=== PATIENT | male | born 1980 | race Caucasian/White ===

== ENCOUNTER 2017-06-02 13:00 | Inpatient (IN) | payer OTHER ==
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
[2017-06-02] MEDS ORDERED: MENTHOL/PHENOL 1 EACH UD MM PRN (19:03)
[2017-06-02] MEDS ORDERED: diazePAM 5 MG TABLET PO PRN (19:03)
[2017-06-02] MEDS ORDERED: MAGNESIUM HYDROX 2400MG/30ML ORAL SUSPENSION 30 ML CUP PO PRN (19:03)
[2017-06-02] MEDS ORDERED: LOPERAMIDE HCL 2 MG CAPSULE PO PRN (19:03)
[2017-06-02] MEDS ORDERED: NICOTINE POLACRILEX 2 MG GUM BC PRN (19:03)
[2017-06-02] MEDS ORDERED: MAG HYDROX/AL HYDROX/SIMETH 30 ML UNIT-DOSE CUP PO PRN (19:03)
[2017-06-02] MEDS ORDERED: P-EPHED 60MG/TRIPROLIDI 2.5MG TABLET PO PRN (19:03)
[2017-06-02] MEDS ORDERED: guaiFENesin/D-METHORPHAN HB 10 ML UNIT-DOSE CUPS PO PRN (19:03)
[2017-06-02] MEDS ORDERED: MAGNESIUM CITRATE 300 ML BOTTLE PO PRN (19:03)
[2017-06-02] MEDS ORDERED: diazePAM 5 MG TABLET PO ONE (19:03)
[2017-06-02] MEDS ORDERED: hydrOXYzine PAMOATE 50 MG CAPSULE (FP) PO PRN (19:03)
[2017-06-02 19:33] VITALS: BMI 23.7
[2017-06-02] MEDS: THIAMINE HCL 100 MG TABLET (FP) PO SCH (21:26)
[2017-06-02] MEDS: diazePAM 5 MG TABLET PO SCH (21:51)
[2017-06-02] MEDS: METHYL SALICYLATE/MENTHOL OINT 30 GM TUBE TP SCH (21:51)
[2017-06-02] MEDS: ACETAMINOPHEN 325 MG TABLET (FP) PO PRN (23:18)
[2017-06-02 23:28] LABS: URINE APPEARANCE CLOUDY; URINE BILIRUBIN NEGATIVE (NEGATIVE); URINE BLOOD NEGATIVE (NEGATIVE); URINE COLOR YELLOW; URINE GLUCOSE (UA) NEGATIVE (NEGATIVE); URINE KETONE NEGATIVE (NEGATIVE); URINE LEUK ESTERASE NEGATIVE (NEGATIVE); URINE NITRITE NEGATIVE (NEGATIVE); URINE PROTEIN NEGATIVE (NEGATIVE); URINE UROBILINOGEN NEGATIVE mg/dL (0.2-1.0)
[2017-06-03] MEDS: diazePAM 5 MG TABLET PO SCH ×3 (06:02→22:39)
[2017-06-03 10:02] LABS: HEMATOCRIT 39.9 % (35.4-49); HEMOGLOBIN 13.3 GM/dL (11.7-16.9); MCH 27.7 pg (25.7-33.7); MCHC 33.4 g/dl (32.0-35.9); MEAN CELL VOLUME 82.9 fl (80-96); MEAN PLT VOLUME 9.5 fl (7.5-11.1); PLATELET COUNT 285 K/MM3 (134-434); RBC 4.81 M/mm3 (4.00-5.60); RDW 15.4 % (11.9-15.9)
[2017-06-03 10:12] LABS: CHLORIDE 107 mmol/L (98-107); POTASSIUM 4.2 mmol/L (3.5-5.1); SODIUM 142 mmol/L (136-145)
[2017-06-03 10:25] LABS: ALBUMIN 3.6 g/dl (3.4-5.0); ALK PHOS 83 U/L (45-117); ANION GAP 8 (8-16); BILIRUBIN,TOTAL 0.3 mg/dL (0.2-1.0); BLOOD UREA NITROGEN 10 mg/dL (7-18); CALCIUM 8.5 mg/dL (8.5-10.1); CO2 27 mmol/L (21-32); GLUCOSE,RANDOM 87 mg/dL (74-106); SGOT/AST 8 U/L (15-37); SGPT/ALT 21 U/L (12-78); TOT PROT 7.1 g/dl (6.4-8.2)
[2017-06-03] MEDS: RANITIDINE HCL 150 MG TABLET (FP) PO SCH (10:32)
[2017-06-03] MEDS: NICOTINE 21 MG/24 HOURS TOPICAL PATCH TD SCH (10:32)
[2017-06-03] MEDS: METHYL SALICYLATE/MENTHOL OINT 30 GM TUBE TP SCH ×2 (10:32→22:40)
[2017-06-03] MEDS: PRENATAL VITAMINS W/ FOLIC ACID TABLET (FP) PO SCH (10:32)
[2017-06-03] MEDS ORDERED: diphenhydrAMINE HCL 25 MG CAPSULE (FP) PO PRN (11:11)
--- NOTE | 2017-06-03 12:24 | EKG ---
Test Reason : Blood Pressure : / mmHG Vent. Rate : 064 BPM Atrial Rate : 072 BPM P-R Int : 000 ms QRS Dur : 086 ms QT Int : 458 ms P-R-T Axes : 074 076 070 degrees QTc Int : 472 ms NORMAL SINUS RHYTHM with INTERMITTENT ECTOPIC ATRIAL COMPLEXES OTHERWISE NORMAL ECG Confirmed by MD ETTA, AYO ([id number]) on 06/03/2017 12:24:18 PM Referred By: Confirmed By:AYO QUILES MD
--- NOTE | 2017-06-03 12:26 | EKG ---
Test Reason : Blood Pressure : / mmHG Vent. Rate : 097 BPM Atrial Rate : 097 BPM P-R Int : 214 ms QRS Dur : 084 ms QT Int : 354 ms P-R-T Axes : -70 071 044 degrees QTc Int : 449 ms UNUSUAL P AXIS, POSSIBLE ECTOPIC ATRIAL RHYTHM ABNORMAL ECG NO PREVIOUS ECGS AVAILABLE Confirmed by MD ETTA, AYO ([id number]) on 06/03/2017 12:26:15 PM Referred By: Confirmed By:AYO QUILES MD
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
[2017-06-03] MEDS: IBUPROFEN 400 MG TABLET (FP) PO PRN ×2 (14:21→22:40)
--- NOTE | 2017-06-03 15:04 | PN ---
[facility] CIWA - CIWA Score Nausea/Vomitin-No Nausea/No Vomiting Muscle Tremors: 3 Anxiety: 4-Mod. Anxious/Guarded Agitation: 3 Paroxysmal Sweats: 3 Orientation: 0-Oriented Tacttile Disturbances: 2-Mild Itch/Numbness/Burn Auditory Disturbances: 0-None Visual Disturbances: 3-Moderate Sensitivity Headache: 0-None Present CIWA-Ar Total Score: 18 S Progress Note (SOAP) Subjective: Interrupted Sleep, Tremors, Sweating, Body Aches, Fatigue. Objective: PT. A & O X 3, OBSERVED AMBULATING ON UNIT. NO ACUTE DISTRESS. 06/03/17 15:02 Vital Signs Temperature 97 F L 06/03/17 10:23 Pulse Rate 75 06/03/17 10:23 Respiratory Rate 18 06/03/17 10:23 Blood Pressure 125/80 06/03/17 10:23 O2 Sat by Pulse Oximetry (%) Laboratory Tests 06/02/17 06/03/17 06/03/17 23:13 06:06 06:06 WBC 8.0 RBC 4.81 Hgb 13.3 Hct 39.9 MCV 82.9 MCH 27.7 MCHC 33.4 RDW 15.4 Plt Count 285 MPV 9.5 Sodium 142 Potassium 4.2 Chloride 107 Carbon Dioxide 27 Anion Gap 8 BUN 10 Creatinine 1.0 Creat Clearance w eGFR > 60 Random Glucose 87 Calcium 8.5 Total Bilirubin 0.3 AST 8 L ALT 21 Alkaline Phosphatase 83 Total Protein 7.1 Albumin 3.6 Urine Color Yellow Urine Appearance Cloudy Urine pH 7.0 Ur Specific [place] 1.017 Urine Protein Negative Urine Glucose (UA) Negative Urine Ketones Negative Urine Blood Negative Urine Nitrite Negative Urine Bilirubin Negative Urine Urobilinogen Negative Ur Leukocyte Esterase Negative RPR Titer 06/03/17 06:06 WBC RBC Hgb Hct MCV MCH MCHC RDW Plt Count MPV Sodium Potassium Chloride Carbon Dioxide Anion Gap BUN Creatinine Creat Clearance w eGFR Random Glucose Calcium Total Bilirubin AST ALT Alkaline Phosphatase Total Protein Albumin Urine Color Urine Appearance Urine pH Ur Specific [place] Urine Protein Urine Glucose (UA) Urine Ketones Urine Blood Urine Nitrite Urine Bilirubin Urine Urobilinogen Ur Leukocyte Esterase RPR Titer Nonreactive LABS NOTED. RESULTS OF ADMISSION AND REPEAT ECG'S NOTED. PATIENT DENIES ANY HISTORY OF CARDIOVASCULAR DISEASE. PATIENT DENIES CHEST PAIN AND SOB. 06/03/17 15:02 Assessment: 06/03/17 15:02 WITHDRAWAL SYMPTOMS. Plan: CONTINUE DETOX. INCREASE DAILY PO FLUID INTAKE.
[2017-06-03] MEDS: THIAMINE HCL 100 MG TABLET (FP) PO SCH (22:39)
[2017-06-04] MEDS: RANITIDINE HCL 150 MG TABLET (FP) PO SCH (10:13)
[2017-06-04] MEDS: METHYL SALICYLATE/MENTHOL OINT 30 GM TUBE TP SCH ×2 (10:13→22:20)
[2017-06-04] MEDS: NICOTINE 21 MG/24 HOURS TOPICAL PATCH TD SCH (10:13)
[2017-06-04] MEDS: diazePAM 5 MG TABLET PO SCH ×2 (10:13→22:20)
[2017-06-04] MEDS: PRENATAL VITAMINS W/ FOLIC ACID TABLET (FP) PO SCH (10:13)
--- NOTE | 2017-06-04 15:08 | PN ---
S CIWA - CIWA Score Nausea/Vomitin-No Nausea/No Vomiting Muscle Tremors: 4-Moderate,w/Arms Extend Anxiety: 4-Mod. Anxious/Guarded Agitation: 4-Moderately Restless Paroxysmal Sweats: 4-Forehead w/Sweat Beads Orientation: 0-Oriented Tacttile Disturbances: 0-None Auditory Disturbances: 0-None Visual Disturbances: 0-None Headache: 0-None Present CIWA-Ar Total Score: 16 [facility] Progress Note (SOAP) Subjective: Sweating, tremor, interrupted sleep Objective: 06/04/17 15:06 Last Vital Signs Temp Pulse Resp BP Pulse Ox 98 F 113 H 20 133/79 06/04/17 14:32 06/04/17 14:32 06/04/17 14:32 06/04/17 14:32 Laboratory Tests 06/02/17 06/03/17 06/03/17 23:13 06:06 06:06 WBC 8.0 RBC 4.81 Hgb 13.3 Hct 39.9 MCV 82.9 MCH 27.7 MCHC 33.4 RDW 15.4 Plt Count 285 MPV 9.5 Sodium 142 Potassium 4.2 Chloride 107 Carbon Dioxide 27 Anion Gap 8 BUN 10 Creatinine 1.0 Creat Clearance w eGFR > 60 Random Glucose 87 Calcium 8.5 Total Bilirubin 0.3 AST 8 L ALT 21 Alkaline Phosphatase 83 Total Protein 7.1 Albumin 3.6 Urine Color Yellow Urine Appearance Cloudy Urine pH 7.0 Ur Specific [place] 1.017 Urine Protein Negative Urine Glucose (UA) Negative Urine Ketones Negative Urine Blood Negative Urine Nitrite Negative Urine Bilirubin Negative Urine Urobilinogen Negative Ur Leukocyte Esterase Negative RPR Titer 06/03/17 06:06 WBC RBC Hgb Hct MCV MCH MCHC RDW Plt Count MPV Sodium Potassium Chloride Carbon Dioxide Anion Gap BUN Creatinine Creat Clearance w eGFR Random Glucose Calcium Total Bilirubin AST ALT Alkaline Phosphatase Total Protein Albumin Urine Color Urine Appearance Urine pH Ur Specific [place] Urine Protein Urine Glucose (UA) Urine Ketones Urine Blood Urine Nitrite Urine Bilirubin Urine Urobilinogen Ur Leukocyte Esterase RPR Titer Nonreactive Labs noted Assessment: 06/04/17 15:07 Withdrawal symptoms Plan: Continue detox
[2017-06-04] MEDS: THIAMINE HCL 100 MG TABLET (FP) PO SCH (22:20)
[2017-06-04] MEDS: IBUPROFEN 400 MG TABLET (FP) PO PRN (22:21)
[2017-06-05] MEDS: METHYL SALICYLATE/MENTHOL OINT 30 GM TUBE TP SCH ×2 (10:17→22:01)
[2017-06-05] MEDS: PRENATAL VITAMINS W/ FOLIC ACID TABLET (FP) PO SCH (10:17)
[2017-06-05] MEDS: NICOTINE 21 MG/24 HOURS TOPICAL PATCH TD SCH (10:17)
[2017-06-05] MEDS: RANITIDINE HCL 150 MG TABLET (FP) PO SCH (10:17)
[2017-06-05] MEDS: diazePAM 5 MG TABLET PO SCH ×2 (10:17→22:01)
--- NOTE | 2017-06-05 12:23 | PN ---
[facility] Progress Note (SOAP) Subjective: Interrupted Sleep, Fatigue. Objective: PT. A & O X 3, OBSERVED AMBULATING ON UNIT WITH ASSISTANCE OF A WALKER. NO ACUTE DISTRESS. 06/05/17 12:21 Vital Signs Temperature 98.0 F 06/05/17 09:29 Pulse Rate 83 06/05/17 09:29 Respiratory Rate 18 06/05/17 09:29 Blood Pressure 129/77 06/05/17 09:29 O2 Sat by Pulse Oximetry (%) Laboratory Tests 06/02/17 06/03/17 06/03/17 23:13 06:06 06:06 WBC 8.0 RBC 4.81 Hgb 13.3 Hct 39.9 MCV 82.9 MCH 27.7 MCHC 33.4 RDW 15.4 Plt Count 285 MPV 9.5 Sodium 142 Potassium 4.2 Chloride 107 Carbon Dioxide 27 Anion Gap 8 BUN 10 Creatinine 1.0 Creat Clearance w eGFR > 60 Random Glucose 87 Calcium 8.5 Total Bilirubin 0.3 AST 8 L ALT 21 Alkaline Phosphatase 83 Total Protein 7.1 Albumin 3.6 Urine Color Yellow Urine Appearance Cloudy Urine pH 7.0 Ur Specific [place] 1.017 Urine Protein Negative Urine Glucose (UA) Negative Urine Ketones Negative Urine Blood Negative Urine Nitrite Negative Urine Bilirubin Negative Urine Urobilinogen Negative Ur Leukocyte Esterase Negative RPR Titer 06/03/17 06:06 WBC RBC Hgb Hct MCV MCH MCHC RDW Plt Count MPV Sodium Potassium Chloride Carbon Dioxide Anion Gap BUN Creatinine Creat Clearance w eGFR Random Glucose Calcium Total Bilirubin AST ALT Alkaline Phosphatase Total Protein Albumin Urine Color Urine Appearance Urine pH Ur Specific [place] Urine Protein Urine Glucose (UA) Urine Ketones Urine Blood Urine Nitrite Urine Bilirubin Urine Urobilinogen Ur Leukocyte Esterase RPR Titer Nonreactive LABS NOTED. Assessment: 06/05/17 12:22 WITHDRAWAL SYMPTOMS. Plan: CONTINUE DETOX. INCREASE DAILY PO FLUID INTAKE.
[2017-06-05] MEDS: ACETAMINOPHEN 325 MG TABLET (FP) PO PRN (20:39)
[2017-06-05] MEDS: THIAMINE HCL 100 MG TABLET (FP) PO SCH (22:01)
[2017-06-05] MEDS: IBUPROFEN 400 MG TABLET (FP) PO PRN (22:02)
[2017-06-06 09:21] VITALS: BP 130/82; PULSE 50; TEMP 97
[2017-06-06] MEDS ORDERED: diazePAM 5 MG TABLET PO SCH (10:00)
--- NOTE | 2017-06-06 15:04 | DS ---
[facility] Detox Discharge Summary Admission Date: 06/02/17 Discharge Date: 06/06/17 - History Present History: Alcohol Dependence, Cocaine Dependence, Sedative Dependence Additional Comments: PATIENT GOING [facility] ([place] FOR AFTERCARE. PATIENT WAS DISCHARGED FROM DETOX UNIT IN STABLE MEDICAL CONDITION. Pertinent Past History: HTN, GERD, Nicotine Dependence, Depression, Use of Walker as Ambulatory Aid. - Physical Exam Results Vital Signs: Vital Signs Temperature 97 F L 06/06/17 09:20 Pulse Rate 50 L 06/06/17 09:20 Respiratory Rate 18 06/06/17 09:20 Blood Pressure 130/82 06/06/17 09:20 O2 Sat by Pulse Oximetry (%) Pertinent Admission Physical Exam Findings: WITHDRAWAL SYMPTOMS. Laboratory Tests 06/02/17 06/03/17 06/03/17 23:13 06:06 06:06 WBC 8.0 RBC 4.81 Hgb 13.3 Hct 39.9 MCV 82.9 MCH 27.7 MCHC 33.4 RDW 15.4 Plt Count 285 MPV 9.5 Sodium 142 Potassium 4.2 Chloride 107 Carbon Dioxide 27 Anion Gap 8 BUN 10 Creatinine 1.0 Creat Clearance w eGFR > 60 Random Glucose 87 Calcium 8.5 Total Bilirubin 0.3 AST 8 L ALT 21 Alkaline Phosphatase 83 Total Protein 7.1 Albumin 3.6 Urine Color Yellow Urine Appearance Cloudy Urine pH 7.0 Ur Specific [place] 1.017 Urine Protein Negative Urine Glucose (UA) Negative Urine Ketones Negative Urine Blood Negative Urine Nitrite Negative Urine Bilirubin Negative Urine Urobilinogen Negative Ur Leukocyte Esterase Negative RPR Titer 06/03/17 06:06 WBC RBC Hgb Hct MCV MCH MCHC RDW Plt Count MPV Sodium Potassium Chloride Carbon Dioxide Anion Gap BUN Creatinine Creat Clearance w eGFR Random Glucose Calcium Total Bilirubin AST ALT Alkaline Phosphatase Total Protein Albumin Urine Color Urine Appearance Urine pH Ur Specific [place] Urine Protein Urine Glucose (UA) Urine Ketones Urine Blood Urine Nitrite Urine Bilirubin Urine Urobilinogen Ur Leukocyte Esterase RPR Titer Nonreactive LABS NOTED. - Treatment Hospital Course: Detox Protocol Followed, Detoxed Safely, Responded well, Discharged Condition Good Patient has Accepted a Rehab Referral to: PATIENT GO[facility] ([place] - Medication Discharge Medications: Ambulatory Orders Unobtainable [Unobtainable] 06/02/17 - Diagnosis (1) Alcohol dependence with uncomplicated withdrawal Status: Acute (2) Sedative, hypnotic or anxiolytic dependence with withdrawal, uncomplicated Status: Acute (3) Unsteady gait Status: Acute (4) Walker as ambulation aid Status: Acute (5) GERD (gastroesophageal reflux disease) Status: Chronic Qualifiers: Esophagitis presence: esophagitis presence not specified Qualified Code(s) : K21.9 - Gastro-esophageal reflux disease without esophagitis (6) Hypertension Status: Chronic Qualifiers: Hypertension type: unspecified Qualified Code(s): I10 - Essential (primary ) hypertension (7) Nicotine dependence Status: Chronic Qualifiers: Nicotine product type: cigarettes Substance use status: uncomplicated Qualified Code(s): F17.210 - Nicotine dependence, cigarettes, uncomplicated (8) Cocaine dependence Status: Acute Qualifiers: Substance use status: uncomplicated Qualified Code(s): F14.20 - Cocaine dependence, uncomplicated - AMA Did Patient Leave Against Medical Advice: No
--- NOTE | 2017-06-07 08:03 | EKG ---
Test Reason : Blood Pressure : / mmHG Vent. Rate : 073 BPM Atrial Rate : 122 BPM P-R Int : 000 ms QRS Dur : 088 ms QT Int : 416 ms P-R-T Axes : 000 070 061 degrees QTc Int : 458 ms NORMAL SINUS RHYTHM intermittent ectopic atrial complexes abnormal ekg Confirmed by AUSTIN HARRISON MD ([id number]) on 06/07/2017 8:02:58 AM Referred By: Confirmed By:AUSTIN HARRISON MD
== END 2017-06-06 08:45 | disposition home or self-care (01) | DRG 774 ==
LOC: YASAS 13:00 → Y3N 17:23
PROVIDERS: ADMIT Internal Medicine; ATTEND Internal Medicine
PROC: HZ2ZZZZ Detoxification Services for Substance Abuse Treatment (ICD-10-PCS; principal; 2017-06-02)
DX: F10.230 Alcohol dependence with withdrawal, uncomplicated (principal); F13.230 Sedative, hypnotic or anxiolytic dependence with withdrawal, uncomplicated; F14.20 Cocaine dependence, uncomplicated; F17.210 Nicotine dependence, cigarettes, uncomplicated; I10 Essential (primary) hypertension; K21.9 Gastro-esophageal reflux disease without esophagitis; R26.89 Other abnormalities of gait and mobility; Z99.89 Dependence on other enabling machines and devices; Z87.828 Personal history of other (healed) physical injury and trauma
CPT/HCPCS: 36415; 80053; 81003; 85027; 86593; 93005; 93010

== ENCOUNTER 2018-01-06 11:58 | Inpatient (IN) | payer OTHER ==
[2018-01-06 12:36] VITALS: BMI 25.8
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
[2018-01-06] MEDS ORDERED: MAGNESIUM HYDROX 2400MG/30ML ORAL SUSPENSION 30 ML CUP PO PRN (15:26)
[2018-01-06] MEDS ORDERED: guaiFENesin/D-METHORPHAN HB 10 ML UNIT-DOSE CUPS PO PRN (15:26)
[2018-01-06] MEDS ORDERED: MAGNESIUM CITRATE 300 ML BOTTLE PO PRN (15:26)
[2018-01-06] MEDS ORDERED: MENTHOL/PHENOL 1 EACH UD MM PRN (15:26)
[2018-01-06] MEDS ORDERED: P-EPHED 60MG/TRIPROLIDI 2.5MG TABLET PO PRN (15:26)
[2018-01-06] MEDS ORDERED: ACETAMINOPHEN 325 MG TABLET (FP) PO PRN (15:26)
[2018-01-06] MEDS ORDERED: LOPERAMIDE HCL 2 MG CAPSULE PO PRN (15:26)
[2018-01-06] MEDS ORDERED: diazePAM 5 MG TABLET PO ONE (17:00)
[2018-01-06] MEDS: NICOTINE 21 MG/24 HOURS TOPICAL PATCH TD SCH (17:52)
[2018-01-06] MEDS: THIAMINE HCL 100 MG TABLET (FP) PO SCH (22:56)
[2018-01-06] MEDS: NAPROXEN 500 MG TABLET (FP) PO SCH (22:57)
[2018-01-06] MEDS: diazePAM 5 MG TABLET PO SCH (22:57)
[2018-01-07] MEDS: diazePAM 5 MG TABLET PO SCH ×3 (05:42→22:52)
[2018-01-07] MEDS: PRENATAL VITAMINS W/ FOLIC ACID TABLET (FP) PO SCH (09:36)
[2018-01-07] MEDS: NICOTINE 21 MG/24 HOURS TOPICAL PATCH TD SCH (09:36)
[2018-01-07] MEDS: diazePAM 5 MG TABLET PO PRN ×2 (09:36→17:32)
[2018-01-07] MEDS: NAPROXEN 500 MG TABLET (FP) PO SCH ×2 (09:36→22:52)
[2018-01-07 10:48] LABS: URINE APPEARANCE TURBID; URINE BILIRUBIN NEGATIVE (<2.0 mg/dL); URINE COLOR YELLOW; URINE GLUCOSE (UA) NEGATIVE (NEGATIVE); URINE KETONE NEGATIVE (NEGATIVE); URINE LEUK ESTERASE NEGATIVE (NEGATIVE); URINE NITRITE NEGATIVE (NEGATIVE); URINE UROBILINOGEN NEGATIVE mg/dL (0.2-1.0)
[2018-01-07 10:54] LABS: HEMATOCRIT 39.6 % (35.4-49); HEMOGLOBIN 13.6 GM/dL (11.7-16.9); MCHC 34.2 g/dl (32.0-35.9); MEAN CELL VOLUME 84.7 fl (80-96); MEAN PLT VOLUME 9.7 fl (7.5-11.1); PLATELET COUNT 256 K/MM3 (134-434); RBC 4.68 M/mm3 (4.00-5.60); RDW 14.4 % (11.9-15.9); WHITE BLOOD COUNT 7.5 K/mm3 (4.0-10.0)
[2018-01-07 10:59] LABS: ALBUMIN 3.2 g/dl (3.4-5.0); ANION GAP 4 MMOL/L (8-16); BILIRUBIN,TOTAL 0.2 mg/dL (0.2-1.0); BLOOD UREA NITROGEN 15 mg/dL (7-18); CALCIUM 8.2 mg/dL (8.5-10.1); CHLORIDE 107 mmol/L (98-107); CO2 30 mmol/L (21-32); CREATININE 0.9 mg/dL (0.7-1.3); GLUCOSE,RANDOM 99 mg/dL (74-106); POTASSIUM 4.1 mmol/L (3.5-5.1); SGOT/AST 10 U/L (15-37); SGPT/ALT 16 U/L (12-78); SODIUM 141 mmol/L (136-145); TOT PROT 6.2 g/dl (6.4-8.2)
[2018-01-07 11:00] LABS: ALK PHOS 101 U/L (45-117)
[2018-01-07 11:01] LABS: URINE PROTEIN 1+ (NEGATIVE)
[2018-01-07 11:24] LABS: CALCIUM OXALATE CRYSTALS RARE /hpf (NONE SEEN); URINE BACTERIA MODERATE /hpf (NONE SEEN); URINE MUCUS MANY; YEAST MANY
--- NOTE | 2018-01-07 13:09 | PN ---
[facility] CIWA - CIWA Score Nausea/Vomitin-No Nausea/No Vomiting Muscle Tremors: 4-Moderate,w/Arms Extend Anxiety: 4-Mod. Anxious/Guarded Agitation: 4-Moderately Restless Paroxysmal Sweats: 1-Minimal Palms Moist Orientation: 0-Oriented Tacttile Disturbances: 0-None Auditory Disturbances: 0-None Visual Disturbances: 0-None Headache: 0-None Present CIWA-Ar Total Score: 13 BHS Progress Note (SOAP) Subjective: ANXIETY,SWEATS,INTERMITTENT SLEEP. Objective: 01/07/18 13:06 Vital Signs 01/07/18 01/07/18 06:11 10:53 Temperature 97.1 F L 97.3 F L Pulse Rate 50 L 80 Respiratory 18 20 Rate Blood Pressure 133/73 132/87 Laboratory Tests 01/07/18 01/07/18 01/07/18 07:40 07:40 08:20 WBC 7.5 RBC 4.68 Hgb 13.6 Hct 39.6 MCV 84.7 MCH 29.0 MCHC 34.2 RDW 14.4 Plt Count 256 MPV 9.7 Sodium 141 Potassium 4.1 Chloride 107 Carbon Dioxide 30 Anion Gap 4 L BUN 15 Creatinine 0.9 Creat Clearance w eGFR > 60 Random Glucose 99 Calcium 8.2 L Total Bilirubin 0.2 AST 10 L D ALT 16 D Alkaline Phosphatase 101 Total Protein 6.2 L Albumin 3.2 L Urine Color Yellow Urine Appearance Turbid Urine pH 5.0 D Ur Specific [place] 1.032 Urine Protein 1+ H Urine Glucose (UA) Negative Urine Ketones Negative Urine Blood Negative Urine Nitrite Negative Urine Bilirubin Negative Urine Urobilinogen Negative Ur Leukocyte Esterase Negative Urine WBC (Auto) 19 Urine RBC (Auto) None Calcium Oxalate Crystal Rare Urine Bacteria Moderate Urine Mucus Many Urine Yeast Many LABS NOTED. Assessment: 01/07/18 13:07 WITHDRAWAL SX Plan: CONTINUE DETOX
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
[2018-01-07] MEDS: MAG HYDROX/AL HYDROX/SIMETH 30 ML UNIT-DOSE CUP PO PRN (14:05)
[2018-01-07] MEDS: THIAMINE HCL 100 MG TABLET (FP) PO SCH (22:52)
[2018-01-07] MEDS: MELATONIN 5 MG TABLETS PO PRN (22:52)
[2018-01-08] MEDS: MAG HYDROX/AL HYDROX/SIMETH 30 ML UNIT-DOSE CUP PO PRN (01:50)
[2018-01-08] MEDS: NICOTINE 21 MG/24 HOURS TOPICAL PATCH TD SCH (10:39)
[2018-01-08] MEDS: NAPROXEN 500 MG TABLET (FP) PO SCH ×2 (10:39→22:36)
[2018-01-08] MEDS: diazePAM 5 MG TABLET PO SCH ×2 (10:39→22:35)
[2018-01-08] MEDS: PRENATAL VITAMINS W/ FOLIC ACID TABLET (FP) PO SCH (10:39)
--- NOTE | 2018-01-08 12:41 | PN ---
[facility] CIWA - CIWA Score Nausea/Vomitin-No Nausea/No Vomiting Muscle Tremors: 4-Moderate,w/Arms Extend Anxiety: 3 Agitation: 4-Moderately Restless Paroxysmal Sweats: 1-Minimal Palms Moist Orientation: 0-Oriented Tacttile Disturbances: 0-None Auditory Disturbances: 0-None Visual Disturbances: 0-None Headache: 0-None Present CIWA-Ar Total Score: 12 S Progress Note (SOAP) Subjective: ANXIETY,SWEATS,DECREASED TREMORS, REPORTS DETOX TAPER PROCEEDING WELL. Objective: 01/08/18 12:41 Vital Signs 01/08/18 01/08/18 01/08/18 06:37 06:39 09:16 Temperature 97.9 F 97.3 F L Pulse Rate 106 H 110 H Respiratory 18 19 18 Rate Blood Pressure 138/79 132/78 Laboratory Tests 01/07/18 01/07/18 01/07/18 07:40 07:40 07:40 WBC 7.5 RBC 4.68 Hgb 13.6 Hct 39.6 MCV 84.7 MCH 29.0 MCHC 34.2 RDW 14.4 Plt Count 256 MPV 9.7 Sodium 141 Potassium 4.1 Chloride 107 Carbon Dioxide 30 Anion Gap 4 L BUN 15 Creatinine 0.9 Creat Clearance w eGFR > 60 Random Glucose 99 Calcium 8.2 L Total Bilirubin 0.2 AST 10 L D ALT 16 D Alkaline Phosphatase 101 Total Protein 6.2 L Albumin 3.2 L Urine Color Urine Appearance Urine pH Ur Specific [place] Urine Protein Urine Glucose (UA) Urine Ketones Urine Blood Urine Nitrite Urine Bilirubin Urine Urobilinogen Ur Leukocyte Esterase Urine WBC (Auto) Urine RBC (Auto) Calcium Oxalate Crystal Urine Bacteria Urine Mucus Urine Yeast RPR Titer Nonreactive 01/07/18 08:20 WBC RBC Hgb Hct MCV MCH MCHC RDW Plt Count MPV Sodium Potassium Chloride Carbon Dioxide Anion Gap BUN Creatinine Creat Clearance w eGFR Random Glucose Calcium Total Bilirubin AST ALT Alkaline Phosphatase Total Protein Albumin Urine Color Yellow Urine Appearance Turbid Urine pH 5.0 D Ur Specific [place] 1.032 Urine Protein 1+ H Urine Glucose (UA) Negative Urine Ketones Negative Urine Blood Negative Urine Nitrite Negative Urine Bilirubin Negative Urine Urobilinogen Negative Ur Leukocyte Esterase Negative Urine WBC (Auto) 19 Urine RBC (Auto) None Calcium Oxalate Crystal Rare Urine Bacteria Moderate Urine Mucus Many Urine Yeast Many RPR Titer Assessment: 01/08/18 12:41 WITHDRAWAL SX Plan: CONTINUE DETOX
--- NOTE | 2018-01-08 14:20 | EKG ---
Test Reason : Blood Pressure : / mmHG Vent. Rate : 067 BPM Atrial Rate : 067 BPM P-R Int : 000 ms QRS Dur : 082 ms QT Int : 422 ms P-R-T Axes : 061 074 071 degrees QTc Int : 445 ms SINUS RHYTHM WITH MARKED SINUS ARRHYTHMIA OTHERWISE NORMAL ECG WHEN COMPARED WITH ECG OF 03-JUN-2017 12:23, NO SIGNIFICANT CHANGE WAS FOUND Confirmed by DIDIER CLARK MD ([id number]) on 01/08/2018 2:20:01 PM Referred By: Confirmed By:DIDIER CLARK MD
[2018-01-08] MEDS: diazePAM 5 MG TABLET PO PRN (17:26)
[2018-01-08] MEDS: THIAMINE HCL 100 MG TABLET (FP) PO SCH (22:35)
[2018-01-08] MEDS: MELATONIN 5 MG TABLETS PO PRN (22:36)
[2018-01-09] MEDS: diazePAM 5 MG TABLET PO PRN (01:59)
[2018-01-09] MEDS: diazePAM 5 MG TABLET PO SCH ×2 (10:21→22:18)
[2018-01-09] MEDS: PRENATAL VITAMINS W/ FOLIC ACID TABLET (FP) PO SCH (10:21)
[2018-01-09] MEDS: NAPROXEN 500 MG TABLET (FP) PO SCH ×2 (10:21→22:18)
[2018-01-09] MEDS: NICOTINE 21 MG/24 HOURS TOPICAL PATCH TD SCH (10:22)
--- NOTE | 2018-01-09 11:20 | PN ---
BHS Progress Note (SOAP) Subjective: DECREASED ANXIETY,SWEATS, TREMORS. REPORTS DETOX TAPER EFFECTIVE. EYE SENSITIVITY TO LIGHT. Objective: 01/09/18 11:19 Vital Signs 01/09/18 01/09/18 01/09/18 06:01 06:39 09:32 Temperature 97.0 F L 97 F L Pulse Rate 76 72 Respiratory 18 18 18 Rate Blood Pressure 114/78 109/68 Laboratory Tests 01/07/18 01/07/18 01/07/18 07:40 07:40 07:40 WBC 7.5 RBC 4.68 Hgb 13.6 Hct 39.6 MCV 84.7 MCH 29.0 MCHC 34.2 RDW 14.4 Plt Count 256 MPV 9.7 Sodium 141 Potassium 4.1 Chloride 107 Carbon Dioxide 30 Anion Gap 4 L BUN 15 Creatinine 0.9 Creat Clearance w eGFR > 60 Random Glucose 99 Calcium 8.2 L Total Bilirubin 0.2 AST 10 L D ALT 16 D Alkaline Phosphatase 101 Total Protein 6.2 L Albumin 3.2 L Urine Color Urine Appearance Urine pH Ur Specific [place] Urine Protein Urine Glucose (UA) Urine Ketones Urine Blood Urine Nitrite Urine Bilirubin Urine Urobilinogen Ur Leukocyte Esterase Urine WBC (Auto) Urine RBC (Auto) Calcium Oxalate Crystal Urine Bacteria Urine Mucus Urine Yeast RPR Titer Nonreactive 01/07/18 08:20 WBC RBC Hgb Hct MCV MCH MCHC RDW Plt Count MPV Sodium Potassium Chloride Carbon Dioxide Anion Gap BUN Creatinine Creat Clearance w eGFR Random Glucose Calcium Total Bilirubin AST ALT Alkaline Phosphatase Total Protein Albumin Urine Color Yellow Urine Appearance Turbid Urine pH 5.0 D Ur Specific [place] 1.032 Urine Protein 1+ H Urine Glucose (UA) Negative Urine Ketones Negative Urine Blood Negative Urine Nitrite Negative Urine Bilirubin Negative Urine Urobilinogen Negative Ur Leukocyte Esterase Negative Urine WBC (Auto) 19 Urine RBC (Auto) None Calcium Oxalate Crystal Rare Urine Bacteria Moderate Urine Mucus Many Urine Yeast Many RPR Titer Assessment: 01/09/18 11:20 WITHDRAWAL SX Plan: CONTINUE DETOX
[2018-01-09] MEDS: NICOTINE POLACRILEX 2 MG GUM BUC PRN ×2 (13:41→16:09)
[2018-01-09] MEDS: MAG HYDROX/AL HYDROX/SIMETH 30 ML UNIT-DOSE CUP PO PRN (17:00)
[2018-01-09 19:32] LABS: URINE APPEARANCE CLEAR; URINE BILIRUBIN NEGATIVE (<2.0 mg/dL); URINE COLOR YELLOW; URINE GLUCOSE (UA) NEGATIVE (NEGATIVE); URINE KETONE NEGATIVE (NEGATIVE); URINE LEUK ESTERASE NEGATIVE (NEGATIVE); URINE NITRITE NEGATIVE (NEGATIVE); URINE PROTEIN NEGATIVE (NEGATIVE); URINE UROBILINOGEN NEGATIVE mg/dL (0.2-1.0)
[2018-01-09] MEDS: THIAMINE HCL 100 MG TABLET (FP) PO SCH (22:18)
[2018-01-09] MEDS: MELATONIN 5 MG TABLETS PO PRN (22:18)
[2018-01-10 09:19] VITALS: BP 108/62; PULSE 82; TEMP 97.5
[2018-01-10] MEDS ORDERED: diazePAM 5 MG TABLET PO SCH (10:00)
[2018-01-10] MEDS: NAPROXEN 500 MG TABLET (FP) PO SCH (10:34)
[2018-01-10] MEDS: PRENATAL VITAMINS W/ FOLIC ACID TABLET (FP) PO SCH (10:34)
[2018-01-10] MEDS: NICOTINE 21 MG/24 HOURS TOPICAL PATCH TD SCH (10:36)
--- NOTE | 2018-01-10 13:52 | PN ---
B[facility] Progress Note (SOAP) Subjective: DETOX COMPLETED. ALERT O X 3. REFERRED TO REHAB TODAY. Objective: 01/10/18 13:52 Vital Signs 01/10/18 01/10/18 01/10/18 06:29 06:39 09:18 Temperature 96.8 F L 97.5 F L Pulse Rate 74 82 Respiratory 18 18 20 Rate Blood Pressure 116/68 108/62 Laboratory Tests 01/07/18 01/07/18 01/07/18 07:40 07:40 07:40 WBC 7.5 RBC 4.68 Hgb 13.6 Hct 39.6 MCV 84.7 MCH 29.0 MCHC 34.2 RDW 14.4 Plt Count 256 MPV 9.7 Sodium 141 Potassium 4.1 Chloride 107 Carbon Dioxide 30 Anion Gap 4 L BUN 15 Creatinine 0.9 Creat Clearance w eGFR > 60 Random Glucose 99 Calcium 8.2 L Total Bilirubin 0.2 AST 10 L D ALT 16 D Alkaline Phosphatase 101 Total Protein 6.2 L Albumin 3.2 L Urine Color Urine Appearance Urine pH Ur Specific [place] Urine Protein Urine Glucose (UA) Urine Ketones Urine Blood Urine Nitrite Urine Bilirubin Urine Urobilinogen Ur Leukocyte Esterase Urine WBC (Auto) Urine RBC (Auto) Calcium Oxalate Crystal Urine Bacteria Urine Mucus Urine Yeast RPR Titer Nonreactive 01/07/18 01/09/18 08:20 14:00 WBC RBC Hgb Hct MCV MCH MCHC RDW Plt Count MPV Sodium Potassium Chloride Carbon Dioxide Anion Gap BUN Creatinine Creat Clearance w eGFR Random Glucose Calcium Total Bilirubin AST ALT Alkaline Phosphatase Total Protein Albumin Urine Color Yellow Yellow Urine Appearance Turbid Clear Urine pH 5.0 D 7.0 D Ur Specific [place] 1.032 1.019 Urine Protein 1+ H Negative Urine Glucose (UA) Negative Negative Urine Ketones Negative Negative Urine Blood Negative Negative Urine Nitrite Negative Negative Urine Bilirubin Negative Negative Urine Urobilinogen Negative Negative Ur Leukocyte Esterase Negative Negative Urine WBC (Auto) 19 Urine RBC (Auto) None Calcium Oxalate Crystal Rare Urine Bacteria Moderate Urine Mucus Many Urine Yeast Many RPR Titer Assessment: 01/10/18 13:52 MEDICALLY STABLE Plan: D/C TO REHAB.
--- NOTE | 2018-01-10 13:54 | DS ---
[facility] Detox Discharge Summary Admission Date: 01/06/18 Discharge Date: 01/10/18 - History Present History: Alcohol Dependence, Cannabis Dependence Additional Comments: DETOX COMPLETED Pertinent Past History: PLEASE SEE DX BELOW - Physical Exam Results Vital Signs: Vital Signs Temperature 97.5 F L 01/10/18 09:18 Pulse Rate 82 01/10/18 09:18 Respiratory Rate 20 01/10/18 09:18 Blood Pressure 108/62 01/10/18 09:18 O2 Sat by Pulse Oximetry (%) Pertinent Admission Physical Exam Findings: WITHDRAWAL SX - Treatment Hospital Course: Detox Protocol Followed, Detoxed Safely, Responded well, Discharged Condition Good, Rehab Referral Accepted Patient has Accepted a Rehab Referral to: [facility] - Medication Discharge Medications: Ambulatory Orders Alprazolam [Xanax] 0.5 mg PO BID PRN 01/06/18 Aripiprazole [Abilify -] 15 mg PO DAILY 01/06/18 Oxycodone HCl/Acetaminophen [Percocet 10-325 mg Tablet] 1 each PO QID PRN Quetiapine Fumarate [Seroquel -] 300 mg PO HS 01/06/18 Ranitidine [Zantac -] 150 mg PO DAILY 01/06/18 Zolpidem Tartrate [Ambien] 10 mg PO DAILY 01/06/18 - Diagnosis (1) Alcohol dependence with uncomplicated withdrawal Status: Acute (2) GERD (gastroesophageal reflux disease) Status: Chronic Qualifiers: Esophagitis presence: esophagitis presence not specified Qualified Code(s) : K21.9 - Gastro-esophageal reflux disease without esophagitis (3) Marijuana dependence Status: Acute (4) Nicotine dependence Status: Acute Qualifiers: Nicotine product type: cigarettes Substance use status: in withdrawal Qualified Code(s): F17.213 - Nicotine dependence, cigarettes, with withdrawal (5) Methamphetamine dependence Status: Acute - AMA Did Patient Leave Against Medical Advice: No
== END 2018-01-10 13:10 | disposition other institution (70) | DRG 774 ==
LOC: YASAS 11:58 → Y3N 16:50
PROC: HZ2ZZZZ Detoxification Services for Substance Abuse Treatment (ICD-10-PCS; principal; 2018-01-06)
DX: F10.230 Alcohol dependence with withdrawal, uncomplicated (principal); F14.20 Cocaine dependence, uncomplicated; F15.20 Other stimulant dependence, uncomplicated; F12.20 Cannabis dependence, uncomplicated; F17.213 Nicotine dependence, cigarettes, with withdrawal; I10 Essential (primary) hypertension; K21.9 Gastro-esophageal reflux disease without esophagitis
CPT/HCPCS: 36415; 80053; 81003; 81015; 85027; 86593; 93005; 93010

== ENCOUNTER 2018-01-10 13:23 | Inpatient (IN) | payer OTHER ==
[2018-01-10] MEDS ORDERED: MAG HYDROX/AL HYDROX/SIMETH 30 ML UNIT-DOSE CUP PO PRN (13:56)
[2018-01-10] MEDS ORDERED: MENTHOL/PHENOL 1 EACH UD MM PRN (13:56)
[2018-01-10] MEDS ORDERED: LOPERAMIDE HCL 2 MG CAPSULE PO PRN (13:56)
[2018-01-10] MEDS ORDERED: MAGNESIUM CITRATE 300 ML BOTTLE PO PRN (13:56)
[2018-01-10] MEDS ORDERED: MAGNESIUM HYDROX 2400MG/30ML ORAL SUSPENSION 30 ML CUP PO PRN (13:56)
[2018-01-10] MEDS ORDERED: IBUPROFEN 400 MG TABLET (FP) PO PRN (13:56)
[2018-01-10] MEDS ORDERED: guaiFENesin/D-METHORPHAN HB 10 ML UNIT-DOSE CUPS PO PRN (13:56)
[2018-01-10] MEDS ORDERED: P-EPHED 60MG/TRIPROLIDI 2.5MG TABLET PO PRN (13:56)
[2018-01-10] MEDS ORDERED: ACETAMINOPHEN 325 MG TABLET (FP) PO PRN (13:56)
--- NOTE | 2018-01-10 13:56 | HP ---
[facility] Rehab Assess/Revision - Admission History Admitted to Rehab from: [facility] [place] Date of Admission to Rehab: 01/10/18 - Vital signs Vital Signs: Vital Signs Period Temp Pulse Resp BP Sys/Brown Pulse Ox Last 24 Hr 98.4 F 124 20 105/79 - Findings Detox History & Physical reviewed: Yes Concur with findings: Yes Comments/Additional Findings: DETOX COMPLETED TODAY. Inpatient Rehab Admission - Initial Determination Are CD services needed?: Yes Free of communicable disease: Yes Not in need of hospitalization: Yes - Rehab Admission Criteria Patient is meeting Inpatient Rehab admission criteria:: Yes
[2018-01-10] MEDS ORDERED: NICOTINE POLACRILEX 4 MG GUM BUC PRN (13:58)
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
[2018-01-10] MEDS: NICOTINE 21 MG/24 HOURS TOPICAL PATCH TD SCH (15:47)
[2018-01-10] MEDS: hydrOXYzine PAMOATE 50 MG CAPSULE (FP) PO PRN ×2 (17:30→21:33)
[2018-01-10] MEDS ORDERED: THIAMINE HCL 100 MG TABLET (FP) PO SCH (22:00)
[2018-01-10] MEDS ORDERED: MELATONIN 5 MG TABLETS PO PRN (22:00)
[2018-01-11] MEDS: hydrOXYzine PAMOATE 50 MG CAPSULE (FP) PO PRN (03:08)
[2018-01-11 06:52] VITALS: BP 97/69; PULSE 108; TEMP 98
[2018-01-11] MEDS ORDERED: PRENATAL VITAMINS W/ FOLIC ACID TABLET (FP) PO SCH (10:00)
[2018-01-11] MEDS: NICOTINE 21 MG/24 HOURS TOPICAL PATCH TD SCH (10:09)
[2018-01-11] MEDS ORDERED: PNEUMOCOCCAL 23 VACCINE 0.5 ML VIAL IM ONE (12:00)
--- NOTE | 2018-01-11 12:57 | PN ---
[facility] Progress Note Note: Psychiatric nurse practitioner note: Pt. leaving AMA. Pt. encouraged to stay but is focused on leaving. States he has a doctor's appointment. Pt. leaving AMA.
[2018-01-11] MEDS ORDERED: PNEUMOC 13-VAL CONJ-DIP CRM/PF 0.5 ML DISP.SYRIN IM ONE (13:57)
== END 2018-01-11 13:00 | disposition left against medical advice (07) | DRG 770 ==
LOC: YASAS 13:23 → Y3W 13:24
PROVIDERS: ADMIT Psychiatry & Neurology Psychiatry; ATTEND Psychiatry & Neurology Psychiatry
PROC: HZ42ZZZ Group Counseling for Substance Abuse Treatment, Cognitive-Behavioral (ICD-10-PCS; principal; 2018-01-10)
DX: F10.20 Alcohol dependence, uncomplicated (principal); F13.20 Sedative, hypnotic or anxiolytic dependence, uncomplicated; F14.20 Cocaine dependence, uncomplicated; F15.20 Other stimulant dependence, uncomplicated; F12.20 Cannabis dependence, uncomplicated; F19.24 Other psychoactive substance dependence with psychoactive substance-induced mood disorder; F19.282 Other psychoactive substance dependence with psychoactive substance-induced sleep disorder; I10 Essential (primary) hypertension; K21.9 Gastro-esophageal reflux disease without esophagitis

== ENCOUNTER 2020-12-24 04:46 | Emergency (ER) | payer OTHER ==
[2020-12-24] MEDS ORDERED: PANTOPRAZOLE 40 MG TABLET PO ONE (04:54)
[2020-12-24] MEDS ORDERED: PANTOPRAZOLE 40 MG TABLET ONE (05:01)
[2020-12-24 05:17] VITALS: BMI 26.9
[2020-12-24] MEDS ORDERED: diazePAM 5 MG TABLET PO ONE (10:12)
[2020-12-24] MEDS ORDERED: diazePAM 5 MG TABLET ONE (10:37)
[2020-12-24 14:58] VITALS: BP 131/69; PULSE 77; TEMP 98.1
== END 2020-12-24 14:36 | disposition home or self-care (01) ==
LOC: JER 04:46
DX: F10.29 Alcohol dependence with unspecified alcohol-induced disorder (principal)
CPT/HCPCS: 99283-25

== ENCOUNTER 2020-12-24 15:30 | Inpatient (IN) | payer OTHER ==
[2020-12-24] MEDS ORDERED: MENTHOL/PHENOL 1 EACH UD MM PRN (16:00)
[2020-12-24] MEDS ORDERED: BISMUTH SUBSALICYLATE 524 MG/30 ML PO PRN (16:00)
[2020-12-24] MEDS ORDERED: MAG HYDROX/AL HYDROX/SIMETH 30 ML UNIT-DOSE CUP PO PRN (16:00)
[2020-12-24] MEDS ORDERED: NICOTINE POLACRILEX 2 MG GUM BUC PRN (16:00)
[2020-12-24] MEDS ORDERED: ONDANSETRON *ODT* 4 MG TABLET SL PRN (16:00)
[2020-12-24] MEDS ORDERED: MAGNESIUM HYDROX 2400MG/30ML ORAL SUSPENSION 30 ML CUP PO PRN (16:00)
[2020-12-24] MEDS ORDERED: ACETAMINOPHEN 325 MG TABLET (FP) PO PRN ×2 (16:00)
[2020-12-24] MEDS ORDERED: MAGNESIUM CITRATE 300 ML BOTTLE PO PRN (16:00)
[2020-12-24 16:36] VITALS: BMI 26.9
[2020-12-24] MEDS: diazePAM 5 MG TABLET PO PRN (17:09)
[2020-12-24] MEDS: IBUPROFEN 400 MG TABLET (FP) PO PRN (17:10)
[2020-12-24] MEDS: hydrOXYzine PAMOATE 25 MG CAPSULE (FP) PO SCH ×2 (17:10→23:14)
[2020-12-24] MEDS: NICOTINE 10 MG CARTRIDGE (INHALER) IH PRN (18:01)
[2020-12-24] MEDS ORDERED: MELATONIN 5 MG TABLETS PO SCH (22:00)
[2020-12-24] MEDS: diazePAM 5 MG TABLET PO SCH (23:13)
[2020-12-24] MEDS: THIAMINE HCL 100 MG TABLET (FP) PO SCH (23:14)
[2020-12-25] MEDS: diazePAM 5 MG TABLET PO SCH ×4 (06:18→22:10)
[2020-12-25] MEDS: hydrOXYzine PAMOATE 25 MG CAPSULE (FP) PO SCH ×2 (06:19→10:11)
[2020-12-25] MEDS: METHOCARBAMOL 500 MG TABLET PO PRN ×2 (06:19→22:12)
[2020-12-25] MEDS: PRENATAL VITAMINS W/ FOLIC ACID TABLET (FP) PO SCH (10:11)
[2020-12-25] MEDS: NICOTINE 21 MG/24 HOURS TOPICAL PATCH TD SCH (10:11)
[2020-12-25] MEDS: PANTOPRAZOLE 40 MG TABLET PO SCH (10:11)
[2020-12-25] MEDS: BACITRACIN 0.9 GM PACKET TP SCH (10:11)
[2020-12-25 11:08] LABS: HEMATOCRIT 37.7 % (35.4-49); HEMOGLOBIN 13.1 GM/dL (11.7-16.9); MCH 29.1 pg (25.7-33.7); MCHC 34.7 g/dl (32.0-35.9); MEAN PLT VOLUME 9.3 fl (7.5-11.1); PLATELET COUNT 245 10^3/uL (134-434); RBC 4.49 M/mm3 (4.00-5.60); RDW 15.2 % (11.9-15.9); WHITE BLOOD COUNT 6.8 K/mm3 (4.0-10.0)
[2020-12-25 11:22] LABS: ALBUMIN 2.9 g/dl (3.4-5.0)
[2020-12-25 11:23] LABS: BILIRUBIN,TOTAL 0.1 mg/dL (0.2-1)
[2020-12-25 11:24] LABS: BLOOD UREA NITROGEN 11.2 mg/dL (7-18); CALCIUM 8.4 mg/dL (8.5-10.1)
[2020-12-25 11:25] LABS: CREATININE 0.8 mg/dL (0.55-1.3)
[2020-12-25 11:26] LABS: TOT PROT 5.9 g/dl (6.4-8.2)
[2020-12-25] MEDS: hydrOXYzine PAMOATE 25 MG CAPSULE (FP) PO PRN ×2 (17:47→22:11)
[2020-12-25] MEDS: NICOTINE 10 MG CARTRIDGE (INHALER) IH PRN (17:49)
[2020-12-25] MEDS: THIAMINE HCL 100 MG TABLET (FP) PO SCH (22:10)
[2020-12-25] MEDS: SUVOREXANT 10 MG TABLET PO PRN (22:13)
[2020-12-25] MEDS: IBUPROFEN 400 MG TABLET (FP) PO PRN (22:14)
[2020-12-26] MEDS: diazePAM 5 MG TABLET PO SCH ×3 (06:12→23:21)
[2020-12-26] MEDS: diazePAM 5 MG TABLET PO PRN (10:42)
[2020-12-26] MEDS: PRENATAL VITAMINS W/ FOLIC ACID TABLET (FP) PO SCH (10:42)
[2020-12-26] MEDS: PANTOPRAZOLE 40 MG TABLET PO SCH (10:42)
[2020-12-26] MEDS: BACITRACIN 0.9 GM PACKET TP SCH (10:42)
[2020-12-26] MEDS: NICOTINE 21 MG/24 HOURS TOPICAL PATCH TD SCH (12:29)
[2020-12-26] MEDS: NICOTINE 10 MG CARTRIDGE (INHALER) IH PRN (13:40)
[2020-12-26] MEDS: hydrOXYzine PAMOATE 25 MG CAPSULE (FP) PO PRN ×2 (20:49→23:21)
[2020-12-26] MEDS: METHOCARBAMOL 500 MG TABLET PO PRN (20:49)
[2020-12-26] MEDS: THIAMINE HCL 100 MG TABLET (FP) PO SCH (23:20)
[2020-12-26] MEDS: SUVOREXANT 10 MG TABLET PO PRN (23:22)
[2020-12-27] MEDS: diazePAM 5 MG TABLET PO SCH ×2 (08:15→17:35)
[2020-12-27] MEDS: PRENATAL VITAMINS W/ FOLIC ACID TABLET (FP) PO SCH (10:41)
[2020-12-27] MEDS: PANTOPRAZOLE 40 MG TABLET PO SCH (10:41)
[2020-12-27] MEDS: NICOTINE 21 MG/24 HOURS TOPICAL PATCH TD SCH (10:41)
[2020-12-27] MEDS: BACITRACIN 0.9 GM PACKET TP SCH (10:41)
[2020-12-27] MEDS: NICOTINE 10 MG CARTRIDGE (INHALER) IH PRN (10:42)
[2020-12-27] MEDS: diazePAM 5 MG TABLET PO PRN (15:01)
[2020-12-27] MEDS: IBUPROFEN 400 MG TABLET (FP) PO PRN (17:37)
[2020-12-27] MEDS: hydrOXYzine PAMOATE 25 MG CAPSULE (FP) PO PRN (20:35)
[2020-12-27] MEDS: METHOCARBAMOL 500 MG TABLET PO PRN (20:35)
[2020-12-27] MEDS: SUVOREXANT 10 MG TABLET PO PRN (22:20)
[2020-12-27] MEDS: THIAMINE HCL 100 MG TABLET (FP) PO SCH (23:10)
[2020-12-28] MEDS: METHOCARBAMOL 500 MG TABLET PO PRN (05:16)
[2020-12-28] MEDS: hydrOXYzine PAMOATE 25 MG CAPSULE (FP) PO PRN (05:17)
[2020-12-28] MEDS ORDERED: diazePAM 5 MG TABLET PO ONE (06:00)
[2020-12-28 09:32] VITALS: BP 127/82; PULSE 86; TEMP 97.2
[2020-12-28] MEDS: PRENATAL VITAMINS W/ FOLIC ACID TABLET (FP) PO SCH (10:09)
[2020-12-28] MEDS: NICOTINE 21 MG/24 HOURS TOPICAL PATCH TD SCH (10:09)
[2020-12-28] MEDS: BACITRACIN 0.9 GM PACKET TP SCH (10:09)
[2020-12-28] MEDS: PANTOPRAZOLE 40 MG TABLET PO SCH (10:09)
== END 2020-12-28 10:26 | disposition home or self-care (01) | DRG 774 ==
LOC: YASAS 15:30 → Y3N 16:08
PROVIDERS: ADMIT Allergy & Immunology; ATTEND Allergy & Immunology
PROC: HZ2ZZZZ Detoxification Services for Substance Abuse Treatment (ICD-10-PCS; principal; 2020-12-24)
DX: F10.230 Alcohol dependence with withdrawal, uncomplicated (principal); F14.20 Cocaine dependence, uncomplicated; F12.20 Cannabis dependence, uncomplicated; F17.210 Nicotine dependence, cigarettes, uncomplicated; F19.282 Other psychoactive substance dependence with psychoactive substance-induced sleep disorder; K21.9 Gastro-esophageal reflux disease without esophagitis; Z98.890 Other specified postprocedural states; Z91.013 Allergy to seafood; Z56.0 Unemployment, unspecified; Z59.0 Homelessness
CPT/HCPCS: 36415; 80053; 85027; 86780; C9803; U0003; U0005

== ENCOUNTER 2022-11-13 08:24 | Inpatient (IN) | payer OTHER ==
[2022-11-13 09:02] VITALS: BMI 25.2
[2022-11-13] MEDS ORDERED: BENZOCAINE/MENTHOL (CHLORASEPTIC ) LOZENGE MM PRN (09:43)
[2022-11-13] MEDS ORDERED: MAGNESIUM HYDROX 2400MG/30ML ORAL SUSPENSION 30 ML CUP PO PRN (09:43)
[2022-11-13] MEDS ORDERED: ONDANSETRON *ODT* 4 MG TABLET SL PRN (09:43)
[2022-11-13] MEDS ORDERED: NALOXONE HCL 0.4 MG/ML VIAL IM PRN (09:43)
[2022-11-13] MEDS ORDERED: LOPERAMIDE HCL 2 MG CAPSULE PO PRN (09:43)
[2022-11-13] MEDS ORDERED: NICOTINE POLACRILEX 2 MG GUM BUC PRN (09:43)
[2022-11-13] MEDS ORDERED: MAG HYDROX/AL HYDROX/SIMETH 30 ML UNIT-DOSE CUP PO PRN (09:43)
[2022-11-13] MEDS ORDERED: BISMUTH SUBSALICYLATE 524 MG/30 ML PO PRN (09:43)
[2022-11-13] MEDS ORDERED: NALOXONE HCL (KLOXXADO) 8 MG SPRAY NS PRN (09:43)
[2022-11-13] MEDS ORDERED: IBUPROFEN 400 MG TABLET (FP) PO PRN (09:43)
[2022-11-13] MEDS ORDERED: BENZONATATE 200 MG CAPSULE PO PRN (09:43)
[2022-11-13] MEDS ORDERED: POLYETHYLENE GLYCOL (HEALTHYLAX) 3350 17 GM PACKET PO PRN (09:43)
[2022-11-13] MEDS ORDERED: IBUPROFEN 600 MG TABLET (FP) PO PRN (09:43)
[2022-11-13] MEDS ORDERED: NICOTINE 10 MG CARTRIDGE (INHALER) IH PRN (09:43)
[2022-11-13] MEDS ORDERED: guaiFENesin 600 MG TABLET.ER (FP) PO PRN (09:43)
[2022-11-13] MEDS ORDERED: DICYCLOMINE HCL 10 MG CAPSULE PO PRN (09:43)
[2022-11-13] MEDS ORDERED: ACETAMINOPHEN 325 MG TABLET (FP) PO PRN (09:43)
[2022-11-13] MEDS: PRENATAL VITAMINS W/ FOLIC ACID TABLET (FP) PO SCH (10:34)
[2022-11-13] MEDS ORDERED: hydrOXYzine PAMOATE 25 MG CAPSULE (FP) PO ONE (11:07)
[2022-11-13] MEDS: hydrOXYzine PAMOATE 25 MG CAPSULE (FP) PO PRN ×2 (11:09→22:28)
[2022-11-13] MEDS ORDERED: THIAMINE HCL 100 MG TABLET (FP) PO SCH (22:00)
[2022-11-13] MEDS ORDERED: MELATONIN 5 MG TABLETS PO SCH (22:00)
[2022-11-13] MEDS: METHOCARBAMOL 500 MG TABLET PO PRN (22:27)
[2022-11-14] MEDS: hydrOXYzine PAMOATE 25 MG CAPSULE (FP) PO PRN (10:41)
[2022-11-14] MEDS: PRENATAL VITAMINS W/ FOLIC ACID TABLET (FP) PO SCH (10:41)
[2022-11-14] MEDS: METHOCARBAMOL 500 MG TABLET PO PRN (10:41)
[2022-11-14 11:08] LABS: POTASSIUM 4.4 mmol/L (3.5-5.1)
[2022-11-14 11:10] LABS: CALCIUM 9.1 mg/dL (8.5-10.1); HEMATOCRIT 42.1 % (35.4-49); HEMOGLOBIN 13.7 GM/dL (11.7-16.9); MCH 27.6 pg (25.7-33.7); MCHC 32.4 g/dl (32.0-35.9); MEAN CELL VOLUME 85.1 fl (80-96); MEAN PLT VOLUME 9.5 fl (7.5-11.1); PLATELET COUNT 315 10^3/uL (134-434); RBC 4.95 M/mm3 (4.00-5.60); WHITE BLOOD COUNT 8.5 K/mm3 (4.0-10.0)
[2022-11-14 11:11] LABS: ALBUMIN 3.2 g/dl (3.4-5.0); BLOOD UREA NITROGEN 14.9 mg/dL (7-18)
[2022-11-14 11:14] LABS: CREATININE 0.7 mg/dL (0.55-1.3)
[2022-11-14 11:15] LABS: BILIRUBIN,TOTAL 0.2 mg/dL (0.2-1); TOT PROT 6.8 g/dl (6.4-8.2)
[2022-11-14 13:48] VITALS: BP 149/84; PULSE 100; RESP 20; TEMP 98
== END 2022-11-14 13:44 | disposition left against medical advice (07) | DRG 770 ==
LOC: YASAS 08:24 → Y6N 10:14
PROVIDERS: ADMIT Allergy & Immunology; ATTEND Surgery
PROC: HZ2ZZZZ Detoxification Services for Substance Abuse Treatment (ICD-10-PCS; principal; 2022-11-13)
DX: F11.23 Opioid dependence with withdrawal (principal); F14.20 Cocaine dependence, uncomplicated; F17.210 Nicotine dependence, cigarettes, uncomplicated; F41.9 Anxiety disorder, unspecified; F32.A Depression, unspecified; K21.9 Gastro-esophageal reflux disease without esophagitis; R26.89 Other abnormalities of gait and mobility; S93.401D Sprain of unspecified ligament of right ankle, subsequent encounter; W19.XXXD Unspecified fall, subsequent encounter
CPT/HCPCS: 36415; 80053; 85027; 86780; 87635; 93005; 93010